=== PATIENT | female | born 1965 ===

== ENCOUNTER 2023-07-10 09:26 | Outpatient (CLI) | payer OTHER, SELFPAY ==
--- NOTE | ~2023-07-10 | MR_ITS ---
MRI of the left knee Clinical history: Pain Technique: Coronal proton density and proton density-weighted images, sagittal proton-density and T2 fat-sat images, and axial proton-density fat-saturated images were acquired. 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 Posterior cruciate ligament is intact. Medial collat eral ligament and the lateral collateral ligament complex are intact. Popliteus tendon is intact. There is probable complex tear of the anterior horn of the lateral meniscus. No definite medial menis jane tear seen. 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 There is extensive high-grade chondral thinning of the lateral compar tment. There is diffuse mild to moderate chondral thinning in the medial compartment. Small tricompar tmental osteophytes are present. Extensor mechanism is intact. Moderate joint effusion present. Large multiseptated Ann's cyst prese nt. 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 Complex tear anterior horn of the lateral meniscus. Advanced osteoarthritic change of the lateral and patellofemoral compartments, with mild to moderate degenerative change of the medial compartment. Moderate joint effusion with large multiseptated Ann's cyst. Reviewed, dictated and finalized at location . 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 Complex tear anterior horn of the lateral meniscus. Advanced osteoarthritic change of the lateral and patellofemoral compartments, with mild to moderate degenerative change of the medial compartment. Moderate joint effusion with large multiseptated Ann's cyst.
== END 2023-07-10 09:27 ==
LOC: MICIMG 09:29
PROVIDERS: PCP Family Medicine; Visit Provider Physician Assistant
DX: M25.562 Pain in left knee (principal); S83.272A Complex tear of lateral meniscus, current injury, left knee, initial encounter; M25.462 Effusion, left knee; M71.22 Synovial cyst of popliteal space [Baker], left knee
CPT/HCPCS: 73721